=== PATIENT | male | born 1960 | race African-American/Black ===

== ENCOUNTER 2016-09-05 12:14 | Inpatient (IN) ==
--- NOTE | 2016-09-04 21:13 | Discharge Summary ---
<Keshia Mccloud - Last Filed: 09/04/16 21:10> Date of Encounter: 09/04/16 - Discharge Diagnosis (1) Arthritis of knee, right Priority: Primary Status: Acute (2) Tobacco use Priority: Secondary Status: Chronic (3) Obesity Priority: Secondary Status: Chronic Qualifiers: Obesity type: unspecified obesity type Obesity severity: unspecified obesity severity Qualified Code(s): E66.9 - Obesity, unspecified - Discharge Medications Home Medications: Aspirin Enteric Coated [Aspirin EC] 325 mg PO DAILY #21 tablet. 09/04/16 [Rx] OxyCODONE Immed Rel [Roxicodone 5 MG] 5 - 10 mg PO Q6HR PRN #40 tablet 09/04/16 [Rx] Allergies/Adverse Reactions: Allergies No Known Allergies Allergy (Verified 09/05/16 13:09) Primary care physician: Taylor Mabry MD - Patient Status Disposition: Home, Self-Care Condition: Good - Discharge Instructions Follow Up With: Taylor Mabry MD [Non-Partnered Physician] - Additional Instructions: Discharge Instructions: Total Knee Replacement Please call [facility] ([phone]), your Primary Care Physician, or report to the Emergency Room if you have any of the following symptoms: Nausea, vomiting, fever greater that 101.5, swelling, chest pain, shortness of breath, increased pain/redness/drainage/odor for your incision site, numbness/ tingling, or any other concerning symptoms. ACTIVITY:Weight-bearing as tolerated. You may progress off support (cruthches or walker) as tolerated. MEDICATIONS: Upon discharge resume your home medications. Take all the medications as prescribed. Take a stool softener if taking narcotic pain medications. Stool softeners are only effective if you drink enough fluids. Drink 6-8 glass of water or fluids a day, unless this is not allowed for another health problem. Despite using stool softeners, if you haven't had a bowel movement in 3 days, please switch to a gentle laxative. Gentle laxatives are sold over the counter. You should have a bowel movement within 24 hours, if not call the office. You will be discharged from the hospital with a prescription for pain medication. You are encouraged to decrease the use of narcotic pain medication as tolerated. Should you require a refill, please call the office. [facility] prescribes narcotic pain medication for only 4-6 weeks after surgery. If you require pain medication beyond this time periord, you may be referred to your Primary Care Physician or to the Pain Clinic for further evaluation. Plan ahead for refills on pain medication as many narcotics either need to be picked up at the office or mailed. It is best to call 48-72 hours in advance of needing a prescription refill so you don't run out of medication. To help control the post-operative pain, you may take NSAIDs (Aleve,Advil, Motrin, ibuprofen, naprosyn) or Tylenol as prescribed on the bottle in addition to the pain medication. ANTICOAGULATION (blood thinners): Continue your Aspirin, Lovenox or Coumadin as prescribed to help prevent a blood clot in the leg or in the lungs. As long as your incision remains dry and you tolerate the NSAIDs (Aleve, Advil, Motrin, ibuprofen, naprosyn), it is OK to use the NSAIDS while you are taking your anticoagulation medication. Should your incision start to drain, stop the NSAID and contact our office. Common symptoms of blood clot in the legs include: localized pain, swelling, calf tenderness, redness or discoloration of the skin. Blood clot in the lung symptoms include: shortness of breath, rapid pulse, sweating, and chest pain that worsens with deep breathing, coughing up blood, lightheadedness, feelings of anxiety. If you experience any of these symptoms notify your physician immediately, go to the emergency room, or if having trouble breathing, call 911. WOUND CARE: Leave the dressing on for 7 days. You may change the dressing if it becomes saturated greater than 50%. You can shower but not a tub bath or submerge your incision in water. Wash your hands with antibacterial soap, rinse and dry prior to any wound care. If you have yannick the visiting nurse or rehab facility can remove the stapes 10-14 days after surgery and place steri- strips across the wound. Leave the steri-strips in place until they fall off on their won. You may let water from the shower run on top of the steri-stirips. If you do not have a visiting nurse or rehab facility, you will need to return to the office at 10-14 days for the yannick to be removed. FOLLOW-UP: Please follow up with your surgeon in the orthopedic clinic in 4 weeks from the day of surgery. If you have yannick that need to be removed, you will need to come back to the office in 10-14 days from the day of surgery. - Hospital Course Hospital course: Mr. Pratt is a 56 year old male - Time Spent with Patient Total time spent providing and/or coordinating discharge services: <Armand Steiner - Last Filed: 09/08/16 17:20> Date of Encounter: 09/08/16 Time of Encounter: 17:19 - Discharge Diagnosis (1) Arthritis of knee, right Priority: Primary Status: Acute (2) Obesity Priority: Secondary Status: Chronic Qualifiers: Obesity type: unspecified obesity type Obesity severity: unspecified obesity severity Qualified Code(s): E66.9 - Obesity, unspecified (3) Tobacco use Priority: Secondary Status: Chronic Labs on day of discharge: Labs from last 24 hours 09/05/16 12:57 POC Glucose 148 H Primary care physician: PCP NO - Patient Status Functional capacity at discharge: uses cane/walker (Patient discharged on September 06.) Overall status at discharge: patient is progressing back to baseline - Hospital Course Hospital course: Mr. Pratt is a 56 year old male The patient had an uneventful postoperative course. They received antibiotics and physical therapy and were discharged in stable condition. There will follow -up in the office in 2 weeks. Aspirin DVT prophylaxis - Time Spent with Patient Total time spent providing and/or coordinating discharge services:
[2016-09-05] MEDS ORDERED: CeFAZolin Pre 2,000 MG/100 ML 2,000 MG/100 ML BAG IVPB ONE (12:47)
[2016-09-05] MEDS ORDERED: Albuterol 2.5 MG/3 ML NEBULIZER IH ONE (12:47)
--- NOTE | 2016-09-05 12:51 | History & Physical Report ---
Date of Encounter: 09/05/16 Time of Encounter: 12:51 24 Hour HP Update - Instructions Instructions: If the History and Physical is less than 30 days old and was completed prior to A.M. admission and or procedure and has NOT been updated on calendar day of procedure please complete this update prior to performing procedure. - Update Patient reports changes in Medical Condition: No Changes in assessment/condition: No Changes in Medication: No Preop tests/diagnostics Reviewed: Yes Surgery Remains Indicated: Yes Consent for Planned Operative Procedure(s) Verified: Yes - Pre-Operative Checklist Preoperative Checklist Indicated: No Prophylactic Antibiotic Ordered: Yes Is VTE Prophylaxis Indicated?: Yes
[2016-09-05] MEDS ORDERED: Ringers Solution, Lactated 1,000 ML IVC SCH ×2 (13:00→18:18)
[2016-09-05] MEDS ORDERED: Famotidine 20 MG/2 ML VIAL IVP ONE (13:33)
[2016-09-05] MEDS ORDERED: Scopolamine Patch 1.5 MG PATCH.TD72 TD ONE (13:33)
--- NOTE | 2016-09-05 13:49 | Anesthesia Evaluation PreOp ---
Date of Encounter: 09/05/16 Time of Encounter: 13:45 - Past History Planned Operation: Rt TKA Cardiac History: HTN, Hyperlipidemia Pulmonary History: Smoker PERSONNEL SPECIALIST History: Denies Any Significant HX Other Medical History: Denies Any Significant HX Anesthesia History: Problems (N/V) Alcohol Use: occasionally Drug use: none Medications and Allergies Aspirin Enteric Coated [Aspirin EC] 325 mg PO DAILY #21 tablet. 09/04/16 [Rx] OxyCODONE Immed Rel [Roxicodone 5 MG] 5 - 10 mg PO Q6HR PRN #40 tablet 09/04/16 [Rx] Allergies No Known Allergies Allergy (Verified 09/05/16 13:09) - Meds/Allergy Pre-op Review Medications Reviewed: Yes Allergies Reviewed: Yes Beta Blockers on Current Med List: No Anesthesia Results - Labs Laboratory Tests 08/30/16 08/30/16 09:40 09:40 Hgb 14.7 Hct 42.0 Plt Count 272 Sodium 135 L Potassium 4.3 BUN 13 Creatinine 1.12 Anesthesia Exam O2 Sat Height 1.68 m Height 1.68 m Height 1.68 m Weight 95.254 kg Weight 95.254 kg Weight 95.254 kg O2 Sat by Pulse Oximetry 96 O2 Sat by Pulse Oximetry 96 O2 Sat by Pulse Oximetry 96 Vital Signs Temp Pulse Resp BP Pulse Ox 98.9 F 78 18 134/100 96 09/05/16 12:39 09/05/16 12:39 09/05/16 12:39 09/05/16 12:39 09/05/16 12:39 Height: 5'6 Weight: 210 lbs NPO (# of Hours): MN Pain Scale: 0 - HEENT Pupil (Motor): Pupils equal, EOMI Mallampati: II Teeth: Edentulous Oral Opening: Greater than 3 - PERSONNEL SPECIALIST LOC: Oriented PERSONNEL SPECIALIST Motor: Normal RUE, Normal LUE, Normal RLE, Normal LLE, Normal Face PERSONNEL SPECIALIST Sensory: Normal: RUE, LUE, RLE, LLE, Face - Cardiac Rhythm: Regular Murmur: None JVD: No Carotid Bruit: No - Pulmonary Breath Sounds: bilateral Clear Respiratory Effort: Symmetrical Anesthesia Assess/Plan ASA Score: 2 Modified [place] Scale for Level of Consciousness: Cooperative, oriented, and tranquil Anesthetic Plan: General, Regional Monitoring Plan: Standard Monitors Recovery Plan: PACU (Discussed GA and RA, agrees to proceed)
[2016-09-05] MEDS ORDERED: *HR* Propofol 200 MG/20 ML VIAL IVP ONE ×2 (14:31→15:41)
[2016-09-05] MEDS ORDERED: *HR* FentaNYL (PF) 100 MCG/2 ML VIAL ONE ×3 (14:31→15:33)
[2016-09-05] MEDS ORDERED: *HR* Midazolam HCl 2 MG/2 ML VIAL ONE ×2 (14:31→14:48)
[2016-09-05] MEDS ORDERED: *HR* Succinylcholine 200 MG/10 ML VIAL IVP ONE ×2 (14:33→14:34)
[2016-09-05] MEDS ORDERED: Lidocaine -MPF 2% 2 ML VIAL ONE (14:33)
[2016-09-05] MEDS ORDERED: Tetracaine/PF 20 MG/2 ML AMPUL SPINA ONE (14:37)
[2016-09-05] MEDS ORDERED: Bupivacaine/Clonidine Syringe 1 EACH SYRINGE ONE (14:43)
--- NOTE | 2016-09-05 15:09 | Anesthesia Procedures ---
Date of Encounter: 09/05/16 Time of Encounter: 13:45 Procedures: Anesthesia - Nerve Block Procedure Date: 09/05/16 Time: 15:00 Pre-op Diagnosis: Rt Knee Arthropathy Surgical Procedure: Rt TKA Checklist: Correct Patient Identifier Correct side: Right Blood Thinner: No Monitor Applied: EKG, BP, Pulse Oximetry Supplemental Oxygen via Nasal Cannula (L/min): 2 Sedation: Versed (mg): 4 Sedation: Fentanyl (mcg): 200 Indication: Post Op Analgesia Pre-op Neuro Deficits: No Block Type: Femoral, Other (iPACK) Catheter placed: No Depth at skin (cm): 2 Sterile Technique: Yes Ultrasound used: Yes Anatomy identified: Yes Visual spread of Local: Yes Neuro Stimulation: Yes Nerve Stimulator Range: >0.4 - 0.6 mA Blood on Needle Aspiration: No Smooth Injection of Local: Yes Pain with Injection of Local: No Prep: Chlorhexadine Needle: 22 x 50 mm Stimuplex Local: Tetracaine (40), Other (bupivacaine 0.5%) Volume (cc): 30 Number of Attempts: 1 Complications: None/effective block Vitals: Vital Signs/O2 Sat/Glucose, Most Current Temp Pulse Resp BP Pulse Ox 09/05/16 14:40 67 18 135/100 99 09/05/16 13:15 18 134/100 96 09/05/16 12:57 98.9 F 78 18 134/100 96 09/05/16 12:39 98.9 F 78 18 134/100 96
[2016-09-05] MEDS ORDERED: Dexamethasone 4 MG/ML VIAL ONE (15:30)
[2016-09-05] MEDS ORDERED: Ondansetron 4 MG/2 ML VIAL ONE (15:30)
[2016-09-05] MEDS ORDERED: Ketorolac 30 MG/ML VIAL ONE (15:39)
--- NOTE | 2016-09-05 16:00 | Orthopedic Operative Note ---
Date of procedure: 09/05/16 Pre-op diagnosis: Knee arthritis right Post-op diagnosis: same Procedure: Procedure: Right Total knee replacement Estimated blood loss: 200 cc Hardware: Arthrex Femur: 5 Tibia: 6 PS insert: 18 Patella: 40 Exam Under anesthesia: Full flexion full extension no instability Procedural Notes: Grade 4 arthritic changes medial compartment patellofemoral joint. Grade 3 arthritic changes lateral compartment Operative procedure: The patient was brought to the operating room and placed on the operating room table. After general anesthesia was administered the operative knee was examined. Findings were noted in the exam under anesthesia. The operative extremity was prepped and draped in sterile surgical fashion. The patient received IV antibiotics prior to skin incision. A standard midline incision was made centered over the patella. The incision was made through the skin and subcutaneous tissue. A medial parapatellar tendon approach was performed. Care was taken to preserve tissue along the medial aspect of the patella. And to protect the patella tendon. The deep MCL was released off the medial tibia. The infra patella fat pad was excised. Knee was brought into flexion. Patient was noted to have grade 4 arthritic changes medial compartment patellofemoral joint grade 3 arthritic changes lateral compartment. The entry hole was made for the intramedullary femoral guide. The guide was seated in 6 degrees of valgus. Anterior cut was made followed by the distal cut. The ACL the PCL the medial and the lateral menisci were excised. The tibia was subluxed forward. The entry hole was made for the intramedullary tibial guide. Guide was seated to resect 2 mm off the more abnormal side. The knee was brought into flexion the distal femur was sized to a 5. The femoral guide was seated, the anterior cut was made followed by the posterior condylar cut, followed by the chamfer cuts. The finishing guide was seated the box cut was made and the lug holes were drilled. The tibia was sized to a 6, the tibial tray was seated and prepared with the large drill followed by the fin cutter. Trial reduction revealed full extension no varus valgus instability with the appropriate 18th PS Jade. The patella was everted and cut was made at the level of the insertion of the quadriceps and patella tendon. The patella was sized to a 40 the guide was seated and the lug holes are drilled. Trial reduction revealed excellent patella tracking. All trial components were removed all bony surfaces were irrigated. The tibia was cemented first followed by the femur. The 18 PS Jade was seated and the knee was brought into full extension. The patella was cemented and held in place with the patellar holding clamp. After the cement had hardened, the knee sat for 2 minutes with a Betadine saline solution. The knee was then irrigated out with 2 L of pulse irrigation. The extensor mechanism was closed with #2 FiberWire suture and #2 PDS suture. The subcutaneous tissue was then irrigated and closed deep with #1 PDS suture superficially with 0 PDS suture and skin was closed with skin yannick and Dermabond. The patient was then placed in a sterile dressing and a postoperative brace extubated and transferred to recovery room in stable condition. Anesthesia: ELÍAS (Jatin) Surgeon: Armand Steiner Protective Officer: Keshia Mccloud Condition: stable Disposition: PACU
[2016-09-05] MEDS ORDERED: *HR* HYDROmorphone (PF) 1 MG/ML SYRINGE IVP PRN (16:03)
[2016-09-05] MEDS ORDERED: *HR* HYDROmorphone 2 MG/ML SYRINGE ONE (16:10)
[2016-09-05] MEDS ORDERED: *HR* Labetalol 20 MG/4 ML SYRINGE IVP ONE (16:14)
[2016-09-05] MEDS ORDERED: Naloxone 0.4 MG/ML INJ IVP ONE (16:45)
[2016-09-05] MEDS ORDERED: Naloxone 0.4 MG/ML INJ ONE (16:47)
--- NOTE | 2016-09-05 16:47 | Electrocardiograph Report ---
[place] Diversion Test Date: 2016-09-05 Pat Name: Rhea Pratt Department: 106 Room: Gender: M Medical Detailist: : 1960 Requested By: Gabriel Song Order Number: [id number] Reading MD: Kevin Nj DO Measurements Intervals [place] Rate: 72 P: 49 MT: 150 QRS: -18 QRSD: 105 T: -13 QT: 377 QTc: 401 Interpretive Statements SINUS RHYTHM NONSPECIFIC T-WAVE ABNORMALITY Electronically Signed On 09-05-2016 16:45:38 EST by Kevin Nj DO
[2016-09-05 16:57] LABS: Hematocrit 37.7 % (37.5-50.1)
[2016-09-05] MEDS ORDERED: Acetaminophen IV 1,000 MG/100 ML INFUS..BTL IVPB ONE (16:57)
[2016-09-05 16:58] LABS: Hemoglobin 12.7 g/dL (12.9-16.9)
--- NOTE | 2016-09-05 17:24 | Anesthesia Procedures ---
Date of Encounter: 09/05/16 Time of Encounter: 17:22 Procedures: Anesthesia - Nerve Block Procedure Date: 09/05/16 Time: 17:22 Allergies/Adv Reactions: Allergies No Known Allergies Allergy (Verified 09/05/16 13:09) Pre-op Diagnosis: oa right knee Surgical Procedure: right tka Checklist: Correct Patient Identifier, Correct procedure, History checked Correct side: Right Blood Thinner: No Monitor Applied: EKG, BP, Pulse Oximetry Supplemental Oxygen via Nasal Cannula (L/min): 2 Indication: Post Op Analgesia Pre-op Neuro Deficits: No Block Type: Femoral Catheter placed: No Sterile Technique: Yes Ultrasound used: Yes Anatomy identified: Yes Visual spread of Local: Yes Neuro Stimulation: No Blood on Needle Aspiration: No Smooth Injection of Local: Yes Pain with Injection of Local: No Prep: Chlorhexadine Needle: 22 x 50 mm Stimuplex Local: Other (10cc 2%lido, 10cc 0.5% bupiv) Volume (cc): 20 Number of Attempts: 1 Complications: None/effective block Vitals: bp 159/112 hr 76 rr 22 spo2 96 Comments: Called to bedside in PACU for patient's c/o pain to right knee 10 out of 10 on the front part of the knee, following the distribution of the saphenous nerve. According to RN, patient came arrived to PACU with a RR of 4/min. Narcan given per Dr Arroyo's orders, followed by 1gm Ofirmev IVPB. After discussing options with the patient and Dr Arroyo, the patient verbally consented to try a rescue femoral nerve block.
[2016-09-05] MEDS: *HR* Labetalol 100 MG/20 ML MDV IVP PRN ×4 (17:33→17:48)
[2016-09-05] MEDS ORDERED: *HR* Enoxaparin 30 MG/0.3 ML SYRINGE SQ SCH (18:00)
--- NOTE | 2016-09-05 18:03 | Anesthesia Evaluation Post Op ---
Date of Encounter: 09/05/16 Time of Encounter: 18:02 - Vital Signs Vital Signs: Vital Signs Temperature 98.9 F 09/05/16 12:39 Pulse Rate 78 09/05/16 12:39 Respiratory Rate 18 09/05/16 12:39 Blood Pressure 134/100 09/05/16 12:39 O2 Sat by Pulse Oximetry 96 09/05/16 12:39 Temperature 97.8 F 09/05/16 17:33 Pulse Rate 70 09/05/16 17:58 Respiratory Rate 20 09/05/16 17:43 Blood Pressure 128/105 09/05/16 17:58 O2 Sat by Pulse Oximetry 97 09/05/16 17:53 - Lungs Lungs: Clear Ascult./Percussion - Airway Airway: Non-obstructed - Cardiovascular Regular Rate - Mental Status Mental Status: Alert & Oriented, Answers Appropriately - Pain Pain Scale: 2 Pain Scale used: Numeric (1 - 10) - Nausea Vomiting Nausea Vomiting: Not Present - Hydration Hydration: NPO, Has not voided - Discharge PostOp Status: Transfer Patient to floor
[2016-09-05] MEDS ORDERED: Sennosides 8.6 MG TABLET PO PRN (18:18)
[2016-09-05] MEDS ORDERED: Naloxone 0.4 MG/ML INJ IVP PRN (18:18)
[2016-09-05] MEDS ORDERED: Temazepam 15 MG CAPSULE PO PRN (18:18)
[2016-09-05] MEDS ORDERED: Acetaminophen 325 MG TABLET PO PRN (18:18)
[2016-09-05] MEDS ORDERED: Albuterol Neb 1.25 MG/3 ML VIAL IH ONE (18:18)
[2016-09-05] MEDS ORDERED: MOM Conc 10 ML UD.LIQ PO PRN (18:18)
[2016-09-05] MEDS ORDERED: Ondansetron 4 MG/2 ML VIAL IVP PRN (18:18)
[2016-09-05] MEDS: *HR* OxyCODONE Immed Rel 5 MG TABLET PO PRN ×2 (19:01→23:44)
[2016-09-05] MEDS: ceFAZolin 2,000 MG in D5% in Water 100 ML IVPB SCH (20:41)
[2016-09-06] MEDS: *HR* HYDROmorphone (PF) 1 MG/ML SYRINGE IVP PRN ×2 (04:50→11:58)
[2016-09-06] MEDS: ceFAZolin 2,000 MG in D5% in Water 100 ML IVPB SCH (04:50)
[2016-09-06] MEDS ORDERED: *HR* Enoxaparin 30 MG/0.3 ML SYRINGE SQ SCH (06:00)
[2016-09-06 06:21] LABS: Hematocrit 33.6 % (37.5-50.1); Hemoglobin 11.3 g/dL (12.9-16.9)
--- NOTE | 2016-09-06 06:27 | Orthopedics Progress Note ---
Date of Encounter: 09/06/16 Time of Encounter: 06:27 - Assessment and Plan (1) Arthritis of knee, right Current Visit: Yes Status: Acute (2) Obesity Current Visit: Yes Status: Chronic Qualifiers: Obesity type: unspecified obesity type Obesity severity: unspecified obesity severity Qualified Code(s): E66.9 - Obesity, unspecified (3) Tobacco use Current Visit: Yes Status: Chronic Subjective Interval history: Patient was seen this morning doing well without complaints. Afebrile vital signs stable. Operative extremity: Neurovascularly intact Dressing clean dry and intact Calves nontender Assessment and plan: Continue with postoperative care Hematocrit 33 Objective Vital signs: Vital Signs Temp Pulse Resp BP Pulse Ox 09/06/16 04:23 98.7 F 73 18 127/79 98 09/05/16 23:21 98.9 F 71 21 141/89 98 09/05/16 21:30 98.6 F 71 15 122/89 98 09/05/16 20:30 98.4 F 61 15 143/90 97 09/05/16 20:14 24 98 09/05/16 19:30 98.1 F 68 15 160/101 96 09/05/16 19:00 98.6 F 71 14 162/105 98 09/05/16 18:29 98.5 F 74 14 154/109 99 09/05/16 18:03 97.1 F L 73 16 95 09/05/16 17:58 70 128/105 09/05/16 17:53 76 138/103 97 09/05/16 17:48 71 134/107 09/05/16 17:43 71 20 155/113 95 09/05/16 17:38 74 151/107 09/05/16 17:33 97.8 F 71 18 171/148 94 L 09/05/16 17:23 77 24 159/112 95 09/05/16 17:13 74 24 134/126 100 09/05/16 17:03 97.8 F 82 26 157/123 100 09/05/16 16:53 81 24 137/90 98 09/05/16 16:43 77 4 118/98 94 L 09/05/16 16:33 97.1 F L 73 6 106/93 93 L 09/05/16 15:08 79 117/88 99 09/05/16 14:40 67 18 135/100 99 09/05/16 13:15 18 134/100 96 09/05/16 12:57 98.9 F 78 18 134/100 96 09/05/16 12:39 98.9 F 78 18 134/100 96 Intake and Output 09/05/16 09/05/16 09/06/16 15:59 23:59 07:59 Intake Total 200 / 200 100 / 100 Output Total 500 / 500 Balance -300 / -300 100 / 100 Intake: IV Fluids 200 / 200 100 / 100 Ofirmev 1,000 mg In 100 100 / 100 ml @ 400 mls/hr IVPB ONCE ONE Rx#:[id number] Ancef 2,000 MG In 100 / 100 100 / 100 Dextrose 5% 100 ML @ 200 mls/hr IVPB Q8H GRISELDA Rx#: [id number] Oral 0 / 0 Output: Urine 0 / 0 Estimated Blood Loss 500 / 500 Other: Weight 95.254 kg Blood Glucose* 148 - Labs CBC & BMP: 09/06/16 05:42 Labs: Abnormal lab results Hgb 11.3 g/dL (12.9-16.9) L 09/06/16 05:42 Hct 33.6 % (37.5-50.1) L 09/06/16 05:42 POC Glucose 148 (58-89) H 09/05/16 12:57 - VTE Documentation of Mechanical Device: Venous foot pump, device Consult Discharge Plan - Plan Referrals: Taylor Mabry MD [Non-Partnered Physician] -
[2016-09-06 06:34] LABS: Calcium 8.9 mg/dL (8.6-10.8); Potassium 4.6 mEq/L (3.5-4.5)
[2016-09-06 06:56] VITALS: BP 103/67
[2016-09-06] MEDS: *HR* OxyCODONE Immed Rel 5 MG TABLET PO PRN ×2 (08:39→15:13)
== END 2016-09-06 15:37 | disposition home or self-care (01) | DRG 302 ==
LOC: SAMDAY 12:14 → 3NENU 18:19
PROVIDERS: ADMIT Orthopaedic Surgery; ATTEND Orthopaedic Surgery

== ENCOUNTER 2018-05-19 08:04 | Inpatient (IN) ==
[2018-05-19] MEDS ORDERED: CeFAZolin Syr 2,000MG/20 ML 2,000 MG/20 ML SYRINGE IVPB ONE (08:29)
[2018-05-19] MEDS ORDERED: Albuterol 2.5 MG/3 ML NEBULIZER IH ONE (08:29)
[2018-05-19] MEDS ORDERED: Ringers Solution, Lactated 1,000 ML IVC SCH ×2 (08:30→13:58)
--- NOTE | 2018-05-19 08:38 | History & Physical Report ---
Date of Encounter: 05/19/18 Time of Encounter: 08:23 24 Hour HP Update - Instructions Instructions: If the History and Physical is less than 30 days old and was completed prior to A.M. admission and or procedure and has NOT been updated on calendar day of procedure please complete this update prior to performing procedure. - Update Patient reports changes in Medical Condition: No Changes in examination, assessment, or condition: No Changes in Medication: No Preop tests/diagnostics Reviewed: Yes Surgery Remains Indicated: Yes Consent for Planned Operative Procedure(s) Verified: Yes - Pre-Operative Checklist Preoperative Checklist Indicated: No Prophylactic Antibiotic Ordered: Yes Is VTE Prophylaxis Indicated?: Yes
[2018-05-19] MEDS ORDERED: ROPIVACAINE HCL/PF 0.5% 30 ML VIAL ONE (09:16)
[2018-05-19] MEDS ORDERED: Tetracaine/PF 20 MG/2 ML AMPUL ONE (09:17)
[2018-05-19] MEDS ORDERED: Bupivacaine/Clonidine Syringe 1 EACH SYRINGE ONE (09:17)
[2018-05-19] MEDS ORDERED: Acetaminophen IV 1,000 MG/100 ML INFUS..BTL IVPB ONE (09:33)
[2018-05-19] MEDS ORDERED: Pregabalin 75 MG CAPSULE PO ONE (09:33)
[2018-05-19] MEDS ORDERED: Famotidine 20 MG/2 ML VIAL IVP ONE (09:33)
--- NOTE | 2018-05-19 09:39 | Anesthesia Evaluation PreOp ---
Date of Encounter: 05/19/18 Time of Encounter: 09:37 - Past History Planned Operation: R-Total shoulder reverse Cardiac History: Denies any Significant Hx Pulmonary History: Smoker COIL PLACER History: Other (lumbar radiculopathy) Other Medical History: Bleeding (Hx DVT s/p R-TKR 2015), Diabetes Type II Anesthesia History: Past Anesthesia (Shoulder scope, L3 kyphoplasty, L-shoulder x3, L-total shoulder reverse, R-TKR), Problems Alcohol Use: occasionally Drug use: none Medications and Allergies OxyCODONE Immed Rel [Roxicodone 5 MG] 5 mg PO Q6HR PRN 5 Days #20 tablet 05/19/18 [Rx] Allergy/AdvReac Type Severity Reaction Status Date / Time No Known Allergies Allergy Verified 05/19/18 08:21 - Meds/Allergy Pre-op Review Medications Reviewed: Yes Allergies Reviewed: Yes Beta Blockers on Current Med List: No Anesthesia Results - Labs Laboratory Tests 05/17/18 05/17/18 05/17/18 11:20 11:20 11:20 WBC 4.7 Hgb 15.1 Hct 43.2 Plt Count 237 PT 10.5 INR 0.9 Sodium 137 Chloride 105 Carbon Dioxide 26 BUN 15 Creatinine 1.23 Est GFR (Non-Af Amer) > 60 - Imaging EKG: report reviewed (72bpm - SINUS RHYTHM NONSPECIFIC T-WAVE ABNORMALITY Electronically Signed On 09-05-2016 16:45:38 EST by Kevin Nj DO) Anesthesia Exam O2 Sat Height 1.7 m Height 1.7 m Weight 91.626 kg Weight 91.626 kg O2 Sat by Pulse Oximetry 94 Vital Signs Temp Pulse Resp BP Pulse Ox 98.6 F 77 16 159/107 94 05/19/18 08:31 05/19/18 08:31 05/19/18 08:31 05/19/18 08:31 05/19/18 08:31 Height: 5'6" Weight: 294# BMI = 31 - HEENT Pupil (Motor): Pupils equal, EOMI Mallampati: II Teeth: Edentulous Oral Opening: Greater than 3 - COIL PLACER LOC: Oriented COIL PLACER Motor: Normal RUE, Normal LUE, Normal LLE, Normal Face, Deficit RLE (RLE burning, numness/tingling below knee) COIL PLACER Sensory: Normal: RUE, LUE, LLE, Face, Deficit: RLE - Cardiac Rhythm: Regular Murmur: None JVD: No - Pulmonary Breath Sounds: bilateral Clear Respiratory Effort: Symmetrical Anesthesia Assess/Plan ASA Score: 2 (Obesity, Smoker) Modified [place] Scale for Level of Consciousness: Cooperative, oriented, and tranquil Anesthetic Plan: General, Regional Monitoring Plan: Standard Monitors Recovery Plan: PACU Anes Supervising Prov Stmt: Pt seen/evaluated, R&B Discussed, questions answered and consent obtained. Jarek Junior MD
[2018-05-19] MEDS ORDERED: Ethanol\\Acetic Acid\\Na Ace\\Ben 1,000 ML IRRIG.SOLN IR ONE (10:07)
--- NOTE | 2018-05-19 10:08 | Discharge Summary ---
Orders not resulted at time of discharge: Pending orders 05/19/18 00:01 XR shoulder complete RT [XR] Routine H/H [Hemoglobin and Hematocrit] [HEME] Routine 05/19/18 09:34 US anesthesia pain block [US] Routine Date of Encounter: 05/19/18 Time of Encounter: 14:41 - Discharge Diagnosis (1) Type 2 diabetes mellitus Priority: Secondary Status: Chronic Qualifiers: Diabetes mellitus intermediate manager insulin use: with intermediate manager use Diabetes mellitus complication status: without complication Qualified Code(s): E11.9 - Type 2 diabetes mellitus without complications; Z79.4 - terminal gauger supervisor (current) use of insulin (2) Right rotator cuff tear arthropathy Priority: Primary Status: Chronic (3) Status post reverse total replacement of right shoulder Priority: Primary Status: Acute (4) History of DVT (deep vein thrombosis) Priority: Secondary Status: Chronic (5) Tobacco use Priority: Secondary Status: Chronic (6) Obesity (BMI 30.0-34.9) Priority: Secondary Status: Chronic - Hospital Course Hospital course: Mr. Pratt is a 58 year old male The patient had an uneventful postoperative course. They received antibiotics and physical therapy and were discharged in stable condition. There will follow-up in the office in 2 weeks. - Time Spent with Patient Total time spent providing and/or coordinating discharge services: - Discharge Medications Home Medications: OxyCODONE Immed Rel [Roxicodone 5 MG] 5 mg PO Q6HR PRN 5 Days #20 tablet 05/19/18 [Rx] Allergies/Adverse Reactions: Allergy/AdvReac Type Severity Reaction Status Date / Time No Known Allergies Allergy Verified 05/19/18 08:21 Primary care physician: Kevin Bennett CNP - Patient Status Disposition: Home, Self-Care Condition: Good Functional capacity at discharge: independent ambulation Overall status at discharge: patient is progressing back to baseline - Discharge Instructions Follow Up With: Kevin Bennett CNP [Primary Care Provider] -
[2018-05-19] MEDS ORDERED: *HR* Midazolam HCl 2 MG/2 ML VIAL ONE ×2 (10:16→10:25)
[2018-05-19] MEDS ORDERED: *HR* FentaNYL (PF) 100 MCG/2 ML VIAL ONE ×3 (10:17→11:19)
[2018-05-19] MEDS ORDERED: *HR* Succinylcholine 200 MG/10 ML VIAL IVP ONE (10:25)
[2018-05-19] MEDS ORDERED: *HR* Rocuronium Bromide 50 MG/5 ML VIAL ONE (10:25)
[2018-05-19] MEDS ORDERED: Lidocaine -MPF 2% 2 ML VIAL ONE (10:25)
[2018-05-19] MEDS ORDERED: Lidocaine -MPF 4% 5 ML AMPUL ONE (10:25)
[2018-05-19] MEDS ORDERED: *HR* Propofol 200 MG/20 ML VIAL IVP ONE (10:25)
[2018-05-19] MEDS ORDERED: Scopolamine Patch 1.5 MG PATCH.TD72 ONE (10:32)
--- NOTE | 2018-05-19 11:02 | Anesthesia Procedures ---
Date of Encounter: 05/19/18 Time of Encounter: 10:45 Procedures: Anesthesia - Nerve Block Procedure Date: 05/19/18 Time: 10:45 Allergies/Adv Reactions: NKDA Pre-op Diagnosis: R Shoulder Arthritis Surgical Procedure: R Total Shoulder Arthroplasty Checklist: Correct Patient Identifier, Correct procedure, History checked Correct side: Right Blood Thinner: No Monitor Applied: EKG, BP, Pulse Oximetry Supplemental Oxygen via Nasal Cannula (L/min): 2 Sedation: Versed (mg): 2 Sedation: Fentanyl (mcg): 100 Indication: Post Op Analgesia Pre-op Neuro Deficits: No Block Type: Supraclavicular, Other (Intermediate Cervical Plexus, Intercostobracheal. ) Catheter placed: No Sterile Technique: Yes Ultrasound used: Yes Anatomy identified: Yes Visual spread of Local: Yes Neuro Stimulation: No Blood on Needle Aspiration: No Smooth Injection of Local: Yes Pain with Injection of Local: No Prep: Chlorhexadine Needle: 22 x 50 mm Stimuplex Local: 0.25% Bupivicaine w/Clonidine 20 mcg/cc (10mL Intercostobracheal, 10mL Intermediate Cervical Plexus), Ropivacaine (30mL 0.5% Ropivacaine with 8mg Decadron and 20mg Tetracaine) Number of Attempts: 1 Complications: None/effective block Vitals: Vital Signs/O2 Sat/Glucose, Most Recent Temp Pulse Resp BP Pulse Ox 98.6 F 71 18 170/115 96 05/19/18 08:31 05/19/18 10:52 05/19/18 10:52 05/19/18 10:52 05/19/18 10:52 Blood Glucose* 167
[2018-05-19] MEDS ORDERED: Ondansetron 4 MG/2 ML VIAL IVP ONE (11:04)
[2018-05-19] MEDS ORDERED: *HR* Promethazine 25 MG/ML VIAL IVP PRN (11:04)
[2018-05-19] MEDS ORDERED: *HR* OxyCODONE/APAP 5/325 TABLET PO PRN ×2 (11:04→13:58)
[2018-05-19] MEDS ORDERED: *HR* HYDROmorphone (PF) 1 MG/ML SYRINGE IVP PRN (11:04)
[2018-05-19] MEDS ORDERED: *HR* PHENYLEPHRINE 1,000 MCG/10 ML SYRINGE IVP ONE (11:32)
--- NOTE | 2018-05-19 12:18 | Orthopedic Operative Note ---
Date of procedure: 05/19/18 Pre-op diagnosis: Right shoulder cuff tear arthropathy Post-op diagnosis: same Procedure: Procedure: Total Shoulder Replacment Reverse, right Estimated blood loss: 50 cc Hardware: Metal and polyethylene replacement: Arthrex 28, +2 , 30 mm screw glenoid baseplate, 2 4.5 screws. 2 5.5 screw, 42+4 glenosphere, 15 apex humeral stem, poly insert 3 and 9 metal Exam Under anesthesia: Full motion no instability Procedural Notes: Grade 4 arthritic changes humeral head tear supraspinatus tendon grade 4 changes glenoid socket Operative procedure: The patient was brought to the operating room and placed on the operating room table. After general anesthesia was administered the operative shoulder was examined. Findings were noted. The patient was placed in the modified beachchair position. All pressure points were padded appropriately. And the head was stabilized in the neutral position. The operative extremity was prepped and draped in the sterile surgical fashion. The patient received IV antibiotics prior to skin incision. A standard deltopectoral approach was made to the operative shoulder. Incision was made to the skin and subcutaneous tissue,hemo stasis was obtained with Bovie cautery. Using careful blunt dissection the cephalic vein was identified and mobilized medially. The deltopectoral interval was developed and the clavipectoral fascia was incised. The subscap was released off the lesser tuberosity and tagged with #2 FiberWire suture The patient with irreparable subscap. The humerus was dislocated patient noted to have irreparable tear supraspinatus tendon, and the humeral cut was made along the anatomic neck. Patient noted to have grade 4 arthritic changes humeral head. Anterior and posterior Bankart retractors were placed to expose the glenoid. Patient noted to have grade 4 arthritic changes glenoid socket. The glenoid guide was seated and the centering hole was made. It was reamed with the appropriate reamer. The 28, +2, 30 mm screw was seated and secured with (2) 4.5 screws and 2 5.5 screw. The baseplate was irrigated and dried and the 42+4 Glenosphere was seated and secured with the Marroquin taper. The Marroquin taper was tested and found to be secure the humerus was redislocated and prepared with the diaphyseal reamers, followed by a broaching process up to the appropriate size 15 apex in the patient's anatomic version. The metaphyseal reamer was then utilized. Trial reduction found the shoulder to be relocatable. Trial components were removed and 15 apex stem was impacted in place in the patient's anatomic version. Trial reduction found the shoulder to be relocatable and stable with the appropriate 9 metal and 3 Jade Trial component was removed and the real implant was seated and secured the shoulder was reduced. The shoulder had excellent motion and excellent stability and no evidence of dislocation. The deep tissue was irrigated with pulse irrigation. The deltopectoral interval was closed with a running #1 PDS suture, subcutaneous tissue was irrigated and closed with 0 PDS suture, the skin was closed with Dermabond. The patient was placed in a sterile dressing, abduction brace and extubated. The patient was then transferred to the recovery room in stable condition. Anesthesia: GETA Surgeon: Armand Steiner Was there an printing assistant present: No Estimated blood loss (cc): 50 Condition: stable Disposition: PACU
[2018-05-19] MEDS ORDERED: *HR* Labetalol 20 MG/4 ML SYRINGE IVP PRN (12:44)
[2018-05-19] MEDS ORDERED: *HR* Labetalol 20 MG/4 ML SYRINGE IVP ONE (12:46)
[2018-05-19 12:51] LABS: Hematocrit 39.2 % (37.5-50.1)
[2018-05-19] MEDS ORDERED: cloNIDine HCl 0.1 MG TABLET PO ONE (13:18)
[2018-05-19] MEDS ORDERED: cloNIDine HCl 0.1 MG TABLET ONE (13:27)
[2018-05-19] MEDS ORDERED: Sennosides 8.6 MG TABLET PO PRN (13:58)
[2018-05-19] MEDS ORDERED: traMADol 50 MG TABLET PO PRN (13:58)
[2018-05-19] MEDS ORDERED: *HR* OxyCODONE Immed Rel 5 MG TABLET PO PRN (13:58)
[2018-05-19] MEDS ORDERED: Ondansetron 4 MG/2 ML VIAL IVP PRN (13:58)
[2018-05-19] MEDS ORDERED: Naloxone 0.4 MG/ML INJ IVP PRN (13:58)
[2018-05-19] MEDS ORDERED: D5% in Water 1,000 ML IVC PRN (13:58)
[2018-05-19] MEDS ORDERED: Dextrose Gel 15 GM/37.5 ML TUBE PO PRN ×2 (13:58)
[2018-05-19] MEDS ORDERED: Temazepam 15 MG CAPSULE PO PRN (13:58)
[2018-05-19] MEDS ORDERED: Insulin LISPRO 300 UNITS/3 ML VIAL SQ SCH ×2 (13:58→21:00)
[2018-05-19] MEDS ORDERED: MOM Conc 10 ML UD.LIQ PO PRN (13:58)
[2018-05-19] MEDS ORDERED: *HR* Dextrose 50 % in Water (Syg) 50 ML SYRINGE IVP PRN (13:58)
[2018-05-19] MEDS ORDERED: *HR* Enoxaparin 30 MG/0.3 ML SYRINGE SQ SCH ×3 (14:15→18:00)
--- NOTE | 2018-05-19 14:38 | Anesthesia Evaluation Post Op ---
Date of Encounter: 05/19/18 Time of Encounter: 13:25 - Vital Signs Vital Signs: Vital Signs Temp Pulse Resp BP Pulse Ox 05/19/18 13:30 97.1 F L 68 17 148/100 98 05/19/18 13:20 97.1 F L 67 12 141/101 100 05/19/18 13:10 73 18 148/101 99 05/19/18 13:00 70 16 161/97 97 05/19/18 12:50 97.5 F L 79 16 151/101 98 05/19/18 12:40 82 16 152/107 96 05/19/18 12:30 71 18 148/103 100 05/19/18 12:20 97.6 F 79 16 155/87 99 Intake and Output Patient Weight 05/19/18 23:59 Weight 91.626 kg - Lungs Lungs: Clear Ascult./Percussion - Airway Airway: Non-obstructed - Cardiovascular Regular Rate - Mental Status Mental Status: Alert & Oriented, Answers Appropriately - Pain Pain Scale: 0 Pain Scale used: Numeric (1 - 10) - Nausea Vomiting Nausea Vomiting: Not Present - Hydration Hydration: Ice chips, Has not voided - Discharge PostOp Status: Transfer Patient to floor Anes Supervising Prov Stmt: Pt seen/evaluated, VSS and has met criteria for discharge to floor. - MD Sandi
[2018-05-19 15:22] VITALS: BP 128/85
--- NOTE | 2018-05-21 13:44 | Physician Discharge Referral ---
Home Health/Hosp Referral Info Transfer to: Home Health Provider in Charge Post Discharge: PCP - Diagnosis (1) Status post reverse total replacement of right shoulder Priority: Primary Status: Acute (2) History of DVT (deep vein thrombosis) Status: Chronic (3) Obesity Status: Chronic (4) Right rotator cuff tear arthropathy Status: Chronic (5) Tobacco use Status: Chronic (6) Type 2 diabetes mellitus Status: Chronic - Respiratory Orders None Smoking Cessation: Smoking cessation has been advised. For more information, call the [employer] Tobacco Quit Line at 2-676-TTDS-NOW. - Diet/Nutrition Diet/Nutrition Orders: Regular - Activity Activity Orders: Up ad helena, Ambulate - Services Needed Following services are medically necessary services: Nursing, Home Health Aide, Physical Therapy, Occupational Therapy Home Care Orders: Opsite dressing, leave intact until first post-operative visit. Zipline in place, plan to remove at post-operative day #14-16. If dressing becomes >50% saturated, contact office, remove dressing and place appropriate dressing in its place. Do not allow for dressing to get wet. Shoulder Precautions x 6 weeks. Apply cold therapy wrap 3-6x/day for 20 minutes at a time. Encourage ambulation throughout the day. Use Incentive spirometer 10x/hour. Elevate affected extremity above heart as tolerated. NWB to affected upper extremity x 6 weeks. Will remove brace at first post-operative appointment. OK to remove during PT/OT and Home exercises. - Transfer Medications Home Medications: OxyCODONE Immed Rel [Roxicodone 5 MG] 5 mg PO Q6HR PRN 5 Days #20 tablet 05/19/18 [Rx] Allergies/Adverse Reactions: Allergy/AdvReac Type Severity Reaction Status Date / Time No Known Allergies Allergy Verified 05/19/18 08:21 Certification: Further, I certify that my clinical findings support that this patient is homebound (i.e. absences from home require considerable and taxing effort and are for medical reasons or christianity services or infrequently or short duration when for other reasons) because: Homebound Reason: Post-surgery restriction and or conditions limit ability to leave home Attestation: My signature below is to certify that this patient is under my care and that I, or nurse practitioner, or a physician's pediatric assistant working with me, has a [id number] encounter with this patient.
== END 2018-05-19 16:23 | disposition home or self-care (01) | DRG 483 ==
LOC: SAMDAY 08:04 → 3NENU 13:47
PROVIDERS: ADMIT Orthopaedic Surgery; ATTEND Orthopaedic Surgery

== ENCOUNTER 2020-09-04 15:38 | Inpatient (IN) ==
[2020-09-04] MEDS ORDERED: Acetaminophen 325 MG TABLET PO PRN (20:29)
[2020-09-04] MEDS ORDERED: Naloxone 0.4 MG/ML INJ IVP PRN (20:29)
[2020-09-04] MEDS ORDERED: Ondansetron 4 MG/2 ML VIAL IVP PRN (20:29)
[2020-09-04] MEDS ORDERED: *HR* HYDROcodone/Acet 5/325 mg TABLET PO PRN (20:29)
[2020-09-04] MEDS ORDERED: *HR* Promethazine 25 MG/ML VIAL IM PRN (20:29)
[2020-09-04] MEDS: Morphine Sulfate 2 MG/ML SYRINGE IVP PRN (21:11)
[2020-09-04] MEDS: Ringers Solution, Lactated 1,000 ML IVC SCH (21:11)
[2020-09-04] MEDS ORDERED: *HR* Heparin 5,000 UNIT/ML VIAL SQ ONE (21:53)
[2020-09-04] MEDS: *HR* OxyCODONE Immed Rel 5 MG TABLET PO PRN (23:10)
[2020-09-04] MEDS ORDERED: *HR* Labetalol 20 MG/4 ML SYRINGE IVP PRN (23:53)
[2020-09-05] MEDS: Morphine Sulfate 2 MG/ML SYRINGE IVP PRN ×2 (01:55→08:54)
[2020-09-05 03:50] LABS: Prothrombin Time 11.8 Seconds (9.4-12.1)
[2020-09-05 03:58] LABS: Basophils % 0.3 %; Eosinophils % 0.2 %; Hematocrit 39.1 % (37.5-50.1); Hemoglobin 13.6 g/dL (12.9-16.9); Immature Granulocytes % 0.2 % (0-4); Lymphocytes # 0.8 K/mcL (0.6-4.6); Lymphocytes % 13.1 %; Mean Corpuscular HGB Conc 34.8 g/dL (31.6-35.5); Mean Corpuscular Hemoglobin 34.3 pg (28.0-33.3); Mean Corpuscular Volume 98.7 fL (83.0-100.0); Mean Platelet Volume 9.9 fL (9.4-12.4); Monocytes # 0.6 K/mcL (0.0-1.3); Monocytes % 9.4 %; Neutrophils # 4.5 K/mcL (1.6-8.9); Platelet Count 207 K/mcL (140-400); Red Blood Count 3.96 M/mcL (4.19-5.50); Red Cell Distribution Width 13.4 % (11.5-14.5); Segmented Neutrophils % 76.8 %; White Blood Count 5.9 K/mcL (4.3-11.1)
[2020-09-05 04:02] LABS: Estimated Average Glucose 157 mg/dl; Hemoglobin A1C 7.1 %
[2020-09-05 04:10] LABS: BUN/Creatinine Ratio 13 (6-26); Blood Urea Nitrogen 13 mg/dL (8-23); Calcium 9.3 mg/dL (8.6-10.3); Carbon Dioxide 23 mEq/L (23-29); Chloride 102 mEq/L (98-107); Glucose 231 mg/dL (70-105); Osmolality,Calculated 285 (280-300); Potassium 4.2 mEq/L (3.5-5.1); Sodium 134 mEq/L (136-145); eGFR For African Americans > 60 (> 60); eGFR For Non-African Americans > 60 (> 60)
[2020-09-05] MEDS: *HR* OxyCODONE Immed Rel 5 MG TABLET PO PRN ×4 (06:25→20:44)
[2020-09-05] MEDS: Ringers Solution, Lactated 1,000 ML IVC SCH (06:31)
[2020-09-05] MEDS ORDERED: Ipratropium/Albuterol Neb 3 ML IH PRN (08:57)
[2020-09-05] MEDS ORDERED: Acetaminophen 325 MG TABLET PO PRN (09:02)
[2020-09-05] MEDS: Nicotine 21 MG PATCH.TD24 TD SCH (09:25)
[2020-09-05] MEDS: Ipratropium/Albuterol Neb 3 ML IH SCH ×3 (10:37→22:38)
[2020-09-05] MEDS: *HR* HYDROmorphone (PF) 1 MG/ML SYRINGE IVP PRN ×3 (11:54→23:36)
[2020-09-06 00:41] LABS: Hematocrit 38.1 % (37.5-50.1); Mean Corpuscular HGB Conc 34.1 g/dL (31.6-35.5); Mean Corpuscular Hemoglobin 33.9 pg (28.0-33.3); Mean Corpuscular Volume 99.5 fL (83.0-100.0); Mean Platelet Volume 9.5 fL (9.4-12.4); Platelet Count 191 K/mcL (140-400); Red Blood Count 3.83 M/mcL (4.19-5.50); Red Cell Distribution Width 13.7 % (11.5-14.5); White Blood Count 5.9 K/mcL (4.3-11.1)
[2020-09-06 01:00] LABS: BUN/Creatinine Ratio 9 (6-26); Blood Urea Nitrogen 10 mg/dL (8-23); Calcium 9.4 mg/dL (8.6-10.3); Carbon Dioxide 23 mEq/L (23-29); Chloride 101 mEq/L (98-107); Glucose 193 mg/dL (70-105); Magnesium 1.6 mg/dL (1.6-2.6); Osmolality,Calculated 278 (280-300); Phosphorous 3.4 mg/dL (2.7-4.5); Potassium 4.2 mEq/L (3.5-5.1); Sodium 132 mEq/L (136-145); eGFR For African Americans > 60 (> 60); eGFR For Non-African Americans > 60 (> 60)
[2020-09-06] MEDS: Ipratropium/Albuterol Neb 3 ML IH SCH ×4 (03:26→22:19)
[2020-09-06] MEDS: *HR* OxyCODONE Immed Rel 5 MG TABLET PO PRN ×4 (04:17→21:59)
[2020-09-06] MEDS: *HR* HYDROmorphone (PF) 1 MG/ML SYRINGE IVP PRN ×3 (06:56→18:59)
[2020-09-06] MEDS: Nicotine 21 MG PATCH.TD24 TD SCH (09:27)
[2020-09-06] MEDS: amLODIPine 5 MG TABLET PO SCH (14:06)
[2020-09-06] MEDS ORDERED: Ipratropium/Albuterol Neb 3 ML IH PRN (23:30)
[2020-09-07] MEDS: *HR* HYDROmorphone (PF) 1 MG/ML SYRINGE IVP PRN ×2 (01:46→10:12)
[2020-09-07 03:24] LABS: Mean Corpuscular HGB Conc 34.2 g/dL (31.6-35.5); Mean Corpuscular Hemoglobin 34.1 pg (28.0-33.3); Mean Corpuscular Volume 99.7 fL (83.0-100.0); Mean Platelet Volume 9.7 fL (9.4-12.4); Platelet Count 195 K/mcL (140-400); Red Blood Count 3.81 M/mcL (4.19-5.50); Red Cell Distribution Width 13.3 % (11.5-14.5)
[2020-09-07 03:43] LABS: BUN/Creatinine Ratio 8 (6-26); Blood Urea Nitrogen 9 mg/dL (8-23); Calcium 9.6 mg/dL (8.6-10.3); Carbon Dioxide 24 mEq/L (23-29); Chloride 98 mEq/L (98-107); Glucose 223 mg/dL (70-105); Magnesium 1.6 mg/dL (1.6-2.6); Osmolality,Calculated 276 (280-300); Phosphorous 3.1 mg/dL (2.7-4.5); Potassium 4.2 mEq/L (3.5-5.1); Sodium 130 mEq/L (136-145); eGFR For African Americans > 60 (> 60); eGFR For Non-African Americans > 60 (> 60)
[2020-09-07] MEDS: *HR* OxyCODONE Immed Rel 5 MG TABLET PO PRN ×2 (07:38→12:05)
[2020-09-07] MEDS: Nicotine 21 MG PATCH.TD24 TD SCH (07:38)
[2020-09-07] MEDS: amLODIPine 5 MG TABLET PO SCH (07:38)
[2020-09-07] MEDS ORDERED: Ipratropium/Albuterol Neb 3 ML ONE (17:25)
[2020-09-07] MEDS ORDERED: Vancomycin 1,000 MG VIAL ONE (17:35)
[2020-09-07] MEDS ORDERED: Ethanol\\Acetic Acid\\Na Ace\\Ben 1,000 ML IRRIG.SOLN IR ONE (17:35)
[2020-09-07] MEDS ORDERED: Lidocaine -MPF 2% 5 ML VIAL ONE (17:37)
[2020-09-07] MEDS ORDERED: Povidone-Iodine 45 ML, Sodium Chloride IRRigation 1,000 ML IR ONE (17:45)
[2020-09-07] MEDS ORDERED: Acetaminophen IV 1,000 MG/100 ML BAG IVPB ONE (17:48)
[2020-09-07] MEDS ORDERED: *HR* Midazolam HCl 2 MG/2 ML VIAL ONE (17:48)
[2020-09-07] MEDS ORDERED: *HR* FentaNYL (PF) 100 MCG/2 ML VIAL ONE (17:48)
[2020-09-07] MEDS ORDERED: Famotidine 20 MG/2 ML VIAL ONE (17:49)
[2020-09-07] MEDS ORDERED: ROPIVACAINE/PF/NS 0.25% 1 EACH SYRINGE INTRAART ONE (17:55)
[2020-09-07] MEDS ORDERED: *HR* Propofol 200 MG/20 ML VIAL IVP ONE (18:04)
[2020-09-07] MEDS ORDERED: Ondansetron 4 MG/2 ML VIAL ONE (18:21)
[2020-09-07] MEDS ORDERED: *HR* HYDROmorphone (PF) 1 MG/ML SYRINGE IVP PRN (18:33)
[2020-09-07] MEDS ORDERED: *HR* HYDROmorphone 2 MG TABLET PO PRN (18:33)
[2020-09-07] MEDS ORDERED: *HR* OxyCODONE Immed Rel 5 MG TABLET PO PRN ×2 (18:33→21:26)
[2020-09-07] MEDS ORDERED: *HR* Labetalol 20 MG/4 ML SYRINGE IVP PRN (18:33)
[2020-09-07] MEDS ORDERED: EPHEDrine 50 MG/ML VIAL ONE (19:19)
[2020-09-07] MEDS ORDERED: Ipratropium/Albuterol Neb 3 ML IH PRN (21:26)
[2020-09-07] MEDS ORDERED: Ringers Solution, Lactated 1,000 ML IVC SCH (21:26)
[2020-09-07] MEDS ORDERED: Acetaminophen 325 MG TABLET PO PRN (21:26)
[2020-09-07] MEDS ORDERED: *HR* Dextrose 50 % in Water (Vial) 50 ML VIAL IVP PRN (21:26)
[2020-09-07] MEDS ORDERED: *HR* OxyCODONE/APAP 5/325 TABLET PO PRN (21:26)
[2020-09-07] MEDS ORDERED: Ondansetron 4 MG/2 ML VIAL IVP PRN (21:26)
[2020-09-07] MEDS ORDERED: Insulin LISPRO 300 UNITS/3 ML VIAL SUBQ SCH (21:26)
[2020-09-07] MEDS ORDERED: Dextrose Gel 15 GM/37.5 ML TUBE PO PRN ×2 (21:26)
[2020-09-07] MEDS ORDERED: Sennosides 8.6 MG TABLET PO PRN (21:26)
[2020-09-07] MEDS ORDERED: MOM Conc 10 ML UD.LIQ PO PRN (21:26)
[2020-09-07] MEDS ORDERED: D5% in Water 1,000 ML IVC PRN (21:26)
[2020-09-07] MEDS ORDERED: Naloxone 0.4 MG/ML INJ IVP PRN (21:26)
[2020-09-08] MEDS: CeFAZolin 2 GM/120 ML BAG IVPB SCH ×2 (01:23→09:21)
[2020-09-08 03:30] LABS: Hematocrit 33.1 % (37.5-50.1)
[2020-09-08 03:31] LABS: Hemoglobin 11.1 g/dL (12.9-16.9)
[2020-09-08 03:50] LABS: BUN/Creatinine Ratio 12 (6-26); Blood Urea Nitrogen 14 mg/dL (8-23); Calcium 9.2 mg/dL (8.6-10.3); Carbon Dioxide 23 mEq/L (23-29); Chloride 100 mEq/L (98-107); Glucose 322 mg/dL (70-105); Osmolality,Calculated 287 (280-300); Potassium 4.7 mEq/L (3.5-5.1); Sodium 132 mEq/L (136-145); eGFR For African Americans > 60 (> 60); eGFR For Non-African Americans > 60 (> 60)
[2020-09-08 06:02] LABS: Hematocrit 32.8 % (37.5-50.1); Hemoglobin 10.9 g/dL (12.9-16.9)
[2020-09-08] MEDS ORDERED: Insulin LISPRO 300 UNITS/3 ML VIAL SUBQ SCH (07:30)
[2020-09-08 08:12] VITALS: BP 166/110
[2020-09-08] MEDS ORDERED: Nicotine 21 MG PATCH.TD24 TD SCH (09:00)
[2020-09-08] MEDS ORDERED: amLODIPine 5 MG TABLET PO SCH (09:00)
[2020-09-08] MEDS ORDERED: *HR* Enoxaparin 30 MG/0.3 ML SYRINGE SQ SCH (18:06)
== END 2020-09-08 11:06 | disposition home health service (06) | DRG 483 ==
LOC: 3NENU → SUATTDRO 19:53
PROVIDERS: ADMIT Internal Medicine; ATTEND Internal Medicine